=== PATIENT | male | born 1980 | race African-American/Black ===

== ENCOUNTER 2019-07-20 12:25 | Emergency (ER) | payer BC ==
--- NOTE | 2019-07-20 12:40 | ER Document Report ---
ED Medical Screen (RME) - General Chief Complaint: Arm Pain Stated Complaint: ARM PAIN Time Seen by Provider: 07/20/19 12:31 Mode of Arrival: Ambulatory Information source: Patient Notes: Patient presents complaining of right upper extremity pain after reaching down to poultry picker his cell phone. Patient has a history of a previous bicep tendon tear that was surgically repaired. Patient states he feels as though he has a León muscle again. Patient states that he would like to have an ultrasound to confirm whether or not he reinjured this as [place]opedic doctor [place]. I have greeted and performed a rapid initial assessment of this patient. A comprehensive ED assessment and evaluation of the patient, analysis of test results and completion of the medical decision making process will be conducted by additional ED providers. - Related Data Allergies/Adverse Reactions: No Known Allergies Allergy (Unverified 07/20/19 12:38) Home Medications: hydrocodone Past Medical History - Social History Chew tobacco use (# tins/day): No Frequency of alcohol use: None Drug Abuse: None Physical Exam - Vital signs Vitals: Temp Pulse Resp BP Pulse Ox 97.9 F 73 18 128/80 H 96 07/20/19 12:28 07/20/19 12:28 07/20/19 12:28 07/20/19 12:28 07/20/19 12:28 - General General appearance: Appears well, Alert Notes: Patient does have asymmetry of the bicep muscle to the right as compared to the left. Tenderness along right bicep muscle Course - Vital Signs Vital signs: Temp Pulse Resp BP Pulse Ox 97.9 F 73 18 128/80 H 96 07/20/19 12:28 07/20/19 12:28 07/20/19 12:28 07/20/19 12:28 07/20/19 12:28
--- NOTE | 2019-07-20 13:19 | RADIOLOGY REPORT (SQ) ---
EXAM DESCRIPTION: U/S EXTREMITY NONVASCULAR LTD COMPLETED DATE/TIME: 07/20/2019 1:07 pm REASON FOR STUDY: RUE pain, ?bicep tendon injury COMPARISON: None. TECHNIQUE: Dynamic and static grayscale images acquired of the localized site of clinical concern an d recorded on PACS. Additional selected color Doppler and spectral images recorded. SITE OF CONCERN: Biceps tendon LIMITATIONS: None. FINDINGS: SKIN AND SUBCUTANEOUS TISSUES: No masses. No fluid collections. No edema. No foreign peter s. DEEP SOFT TISSUES/MUSCLES: Echogenic tendon. Is not possible to determine this is partially related to tear or surgery. VASCULAR: No increased or decreased vascularity. No occlusions. OTHER: No other significant finding. IMPRESSION: Echogenic tendon. Not possible to determine if this is tear or related to surgery. No fluid collection. COMMENT: Recommend MRI of elbow to evaluate the integrity of the biceps tendon repair. TECHNICAL DOCUMENTATION: JOB ID: [id number] [employer]- All Rights Reserved Reading location - IP/workstation name: [email or web address]
--- NOTE | 2019-07-20 13:59 | ER Document Report ---
Entered by WAGNER BENNETT SCRIBE 07/20/19 1321 Acting as scribe for:OUMOU CAMPBELL MD ED Extremity Problem, Upper - General Chief Complaint: Arm Pain Stated Complaint: ARM PAIN Time Seen by Provider: 07/20/19 12:31 Mode of Arrival: Ambulatory Information source: Patient Notes: 39-year-old male who presents to the emergency department today with complaints of right upper extremity pain. Patient in 2014 had a right shoulder labrum tear repair. Patient reports on 03/12/2019 he tore his right bicep in a bodybuilding injury. Patient states then 3 months later on June 12 he had his right bicep reattached because he had a "Navjot muscle". Patient states prior to arrival today his phone was about to fall off of the couch and he reached down to pick it up quickly and felt a pop and felt an intense throbbing pain. Patient states that he lied in the position in his bed for several minutes and then went and took some Tylenol. TRAVEL OUTSIDE OF THE [place] IN LAST 30 DAYS: No - Related Data Allergies/Adverse Reactions: No Known Allergies Allergy (Unverified 07/20/19 12:38) Home Medications: hydrocodone Past Medical History - General Information source: Patient - Social History Smoking Status: Never Smoker Cigarette use (# per day): No Chew tobacco use (# tins/day): No Frequency of alcohol use: Rare Drug Abuse: None Lives with: Family Family History: Reviewed & Not Pertinent Patient has suicidal ideation: No Patient has homicidal ideation: No Past Surgical History: Reports: Hx Orthopedic Surgery - Ganglion cyst removed from left wrist. Right shoulder labrum repair 2014, Other - 03/12/2019 Torn bicep ligament repair 06/12 Bicep reattached, "navjot muscle" Review of Systems - Review of Systems Constitutional: No symptoms reported EENT: No symptoms reported Cardiovascular: No symptoms reported Respiratory: No symptoms reported Gastrointestinal: No symptoms reported Genitourinary: No symptoms reported Male Genitourinary: No symptoms reported Musculoskeletal: See HPI, Other - RUE pain Skin: No symptoms reported Hematologic/Lymphatic: No symptoms reported Neurological/Psychological: No symptoms reported -: Yes All other systems reviewed and negative Physical Exam - Vital signs Vitals: Temp Pulse Resp BP Pulse Ox 97.9 F 73 18 128/80 H 96 07/20/19 12:28 07/20/19 12:28 07/20/19 12:28 07/20/19 12:28 07/20/19 12:28 - Notes Notes: Physical Exam: General: Alert, appears well. HEENT: Normocephalic. Atraumatic. PERRL. Extraocular movements intact. Oropharynx clear. Neck: Supple. Non-tender. Respiratory: No respiratory distress. Clear and equal breath sounds bilaterally. Cardiovascular: Regular rate and rhythm. Abdominal: Normal Inspection. Non-tender. No distension. Normal Bowel Sounds. Back: No gross abnormalities. Extremities: Moves all four extremities. Upper extremities: Right upper extremity is non-tender over the bicep distally, bicep muscle itself is mushy, bicep does not bulge with flexion when trying to tense muscle, bicep is tender proximally where previous surgeries were performed. Lower extremities: Normal inspection. No edema. Normal ROM. Neurological: Normal cognition. AAOx4. Normal speech. Psychological: Normal affect. Normal Mood. Skin: Warm. Dry. Normal color. Course - Vital Signs Vital signs: Temp Pulse Resp BP Pulse Ox 97.9 F 73 18 128/80 H 96 07/20/19 12:28 07/20/19 12:28 07/20/19 12:28 07/20/19 12:28 07/20/19 12:28 - Diagnostic Test Radiology reviewed: Image reviewed, Reports reviewed - Ultrasound showed echogenic tendon and recommended MRI to evaluate integrity of the biceps tendon repair. MRI reading was minimal attenuation at the radial insertion of the biceps tendon with no evidence for complete tear. Discharge - Discharge Clinical Impression: Injury of tendon of biceps Condition: Stable Disposition: HOME, SELF-CARE Additional Instructions: Use your sling immobilizer to protect your biceps tendon. Call your orthopedic surgeon tomorrow with your ultrasound and MRI reports. Follow-up with your orthopedic surgeon or with a local orthopedic surgeon. Take the CD of your ultrasound and MRI when you follow-up with your orthopedic surgeon. RETURN TO THE EMERGENCY ROOM IF ANY NEW OR WORSENING SYMPTOMS. Scribe Attestation: 07/20/19 16:27 I personally performed the services described in the documentation, reviewed and edited the documentation which was dictated to the scribe in my presence, and it accurately records my words and actions. I personally performed the services described in the documentation, reviewed and edited the documentation which was dictated to the scribe in my presence, and it accurately records my words and actions.
--- NOTE | 2019-07-20 16:04 | RADIOLOGY REPORT (SQ) ---
EXAM DESCRIPTION: MRI RT UPPER EXTREMITY WITHOUT COMPLETED DATE/TIME: 07/20/2019 3:43 pm REASON FOR STUDY: R upper arm, biceps repair injury COMPARISON: Ultrasound TECHNIQUE: Right elbow images acquired and stored on PACS. Multiplanar images to include fat sensit viania sequences as T1, fluid sensitive sequences as T2/STIR, cartilage sensitive sequences as FSPD, and gradient echo sequences. Fabs sequence. LIMITATIONS: None. FINDINGS: BONE MARROW: No alteration of signal to suggest marrow replacement or edema. No occult fra cture. No large osteophytes. JOINT EFFUSION: None noted. No loose bodies. ARTICULAR SURFACES: Normal. MEDIAL COLLATERAL LIGAMENT COMPLEX: Intact without edema or tear. MEDIAL EPICONDYLE AND COMMON FLEXOR TENDON: No tendinopathy. No partial or full-thickness tear. LATERAL COLLATERAL LIGAMENT: Intact without edema or tear. LATERAL EPICONDYLE AND COMMON EXTENSOR TENDON: No tendinopathy. No partial or full-thickness tear. LATERAL ULNAR COLLATERAL LIGAMENT: Intact without evidence for tear. BICEPS TENDON: There is minimal attenuation of the repaired biceps. There is no evidence for complet e tear. No fluid. TRICEPS TENDON: Intact. ULNAR NERVE: Well-visualized without edema or encroachment. ADJACENT SOFT TISSUES: No masses or edema. OTHER: No other significant finding. IMPRESSION: Minimal attenuation at the radial insertion of the biceps tendon. There is no evidence for complete tear. No fluid collection. TECHNICAL DOCUMENTATION: JOB ID: [id number] [employer]- All Rights Reserved Reading location - IP/workstation name: [email or web address]
[2019-07-20 16:38] VITALS: BP 126/77
== END 2019-07-20 16:40 | disposition home or self-care (01) ==
LOC: ER 12:25
DX: S46.201A Unspecified injury of muscle, fascia and tendon of other parts of biceps, right arm, initial encounter (principal); X58.XXXA Exposure to other specified factors, initial encounter; Z98.890 Other specified postprocedural states
CPT/HCPCS: 76882; 99283

== ENCOUNTER → 2020-02-02 | Outpatient (CLI) | payer BC ==
--- NOTE | 2020-02-02 16:36 | RADIOLOGY REPORT (SQ) ---
EXAM DESCRIPTION: SHOULDER RIGHT 2 OR MORE VIEWS IMAGES COMPLETED DATE/TIME: 02/02/2020 2:39 pm REASON FOR STUDY: PAIN IN RIGHT SHOULDER M24.9 JOINT DERANGEMENT, UNSPECIFIED M25.511 PAIN IN RIGH T SHOULDER COMPARISON: None. NUMBER OF VIEWS: Three views. TECHNIQUE: Internal rotation, external rotation, and Y view images acquired of the right shoulder. LIMITATIONS: None. FINDINGS: MINERALIZATION: Normal. BONES: No acute fracture. JOINTS: No dislocation. VISUALIZED LUNGS AND RIBS: No pneumothorax or rib fracture. SOFT TISSUES: Endo-button inferior to the greater tubercle of the humerus. OTHER: No other finding. IMPRESSION: 1. No acute osseous abnormality of the right shoulder. 2. Endo-button inferior to the greater tubercle of the humerus. TECHNICAL DOCUMENTATION: JOB ID: [id number] [employer]- All Rights Reserved Reading location - IP/workstation name: [email or web address]
== END ==
LOC: OD 14:24
PROVIDERS: ATTEND Physician Assistant
DX: M24.9 Joint derangement, unspecified (principal); M25.511 Pain in right shoulder